=== PATIENT | male | born 1990 | race Caucasian/White ===

== ENCOUNTER 2020-07-24 20:23 | Emergency (ER) | payer OTHER ==
[~2020-07-24] VITALS: Ht 165.1 cm; Wt 64.0 kg
[2020-07-25] MEDS ORDERED: LIDOCAINE HCL/PF 1% 10 MG/ML 5ML VIAL IJ ONE (02:15)
[2020-07-25] MEDS ORDERED: BACITRACIN ZINC OINT UDPKT TOP ONE (02:15)
[2020-07-25] MEDS ORDERED: IBUPROFEN 600MG TABLET PO ONE (02:15)
[2020-07-25] MEDS ORDERED: IBUP-2029 PO (02:54)
[2020-07-25 03:14] VITALS: BP 132/86
== END 2020-07-25 03:15 | disposition home or self-care (01) ==
LOC: ER 20:23 → EDBD 20:23 → ER 07-25 03:15
DX: S01.81XA Laceration without foreign body of other part of head, initial encounter (principal); W22.8XXA Striking against or struck by other objects, initial encounter; Y93.89 Activity, other specified; Y92.9 Unspecified place or not applicable
CPT/HCPCS: 12011; 99282; J3490

== ENCOUNTER 2020-07-27 10:36 | Emergency (ER) | payer SELFPAY ==
[~2020-07-27] VITALS: Ht 165.1 cm; Wt 62.0 kg
[~2020-07-27 10:36] MED LIST: IBUP-2029 PO
[2020-07-27 10:52] VITALS: BP 140/88
== END 2020-07-27 10:52 | disposition home or self-care (01) ==
LOC: ER 10:41
DX: Z48.00 Encounter for change or removal of nonsurgical wound dressing (principal)
CPT/HCPCS: 99281

== ENCOUNTER 2020-07-30 11:07 | Emergency (ER) | payer SELFPAY ==
[~2020-07-30] VITALS: Ht 165.1 cm; Wt 64.0 kg
[2020-07-30 12:10] VITALS: BP 120/73
== END 2020-07-30 12:11 | disposition home or self-care (01) ==
LOC: ER 11:32
DX: S01.112D Laceration without foreign body of left eyelid and periocular area, subsequent encounter (principal); Z79.899 Other long term (current) drug therapy; W18.39XD Other fall on same level, subsequent encounter
CPT/HCPCS: 99281